=== PATIENT | male | born 1990 | race Caucasian/White ===

== ENCOUNTER 2022-12-26 02:04 | Emergency (ER) | payer BC ==
[2022-12-26] MEDS ORDERED: XYLOCAINE 1% HCL 20 ML MDV IJ ONE (02:05)
--- NOTE | 2022-12-26 02:08 | ERPHSYRPT ---
- History of Present Illness Time Seen by Provider: 12/26/22 02:07 Source: patient Exam Limitations: no limitations Physician History: This is a 32-year-old white male patient who presents with approximately 1-1/2 days of worsening left lower dental pain and swelling of the left jaw. Patient did have some old Augmentin from old infection but it is but he is taken 3 doses of that medication. Patient has no known drug allergies. Patient has a dentist appointment on 12/27/2022. At 130 this morning, patient took 800 mg of ibuprofen orally. Timing/Duration: day(s) (1.5) Severity: moderate Modifying Factors: Improves With: other (Chewing worsens) Associated Symptoms: denies symptoms Allergies/Adverse Reactions: No Known Drug Allergies Allergy (Verified 12/26/22 02:31) Travel Risk - International Travel Have you traveled outside of the country in past 3 weeks: No - Coronavirus Screening Are you exhibiting any of the following symptoms?: No Close contact with a COVID-19 positive Pt in past 14-21 Days: No - Review of Systems Constitutional: No Symptoms Eyes: No Symptoms Ears, Nose, & Throat: Other (Dental pain left lower molars) Respiratory: No Symptoms Cardiac: No Symptoms Abdominal/Gastrointestinal: No Symptoms Genitourinary Symptoms: No Symptoms Musculoskeletal: No Symptoms Skin: No Symptoms Neurological: No Symptoms Psychological: No Symptoms Endocrine: No Symptoms Hematologic/Lymphatic: No Symptoms Immunological/Allergic: No Symptoms All Other Systems: Reviewed and Negative - Past Medical History Pertinent Past Medical History: Yes - Past Surgical History Past Surgical History: Yes - Nursing Vital Signs Nursing Vital Signs: Initial Vital Signs Temperature 98.2 F 12/26/22 02:31 Pulse Rate 76 12/26/22 02:31 Respiratory Rate 18 12/26/22 02:31 Blood Pressure 119/80 12/26/22 02:31 O2 Sat by Pulse Oximetry 96 12/26/22 02:31 Pain Scale Pain Intensity 6 - Physical Exam General Appearance: no apparent distress, alert Eye Exam: PERRL/EOMI, eyes nml inspection Ears, Nose, Throat Exam: other (Molar pain left lower molars with gingival swelling) Neck Exam: normal inspection, non-tender, supple, full range of motion Respiratory Exam: airway intact, No chest tenderness, No respiratory distress Gastrointestinal/Abdomen Exam: No tenderness Rectal Exam: not done Back Exam: normal inspection, normal range of motion, No CVA tenderness, No vertebral tenderness Extremity Exam: normal inspection, normal range of motion, pelvis stable Neurologic Exam: alert, oriented x 3, cooperative, rougher for cement II-XII nml as tested, no rmal mood/affect, nml cerebellar function, nml station & gait, sensation nml Skin Exam: normal color, warm, dry Lymphatic Exam: No adenopathy SpO2 Interpretation: normal O2 Delivery: Room Air - Course Nursing assessment & vital signs reviewed: Yes Ordered Tests: Medication Summary Discontinued Medications Generic Name Dose Route Start Last Admin Trade Name Oniel PRN Reason Stop Dose Admin Ceftriaxone Sodium 1,000 mg 12/26/22 02:53 Ceftriaxone Sodium 1000 Mg Inj Vial IM 12/26/22 02:54 STAT ONE Oxycodone/Acetaminophen 2 tab 12/26/22 02:54 Oxycodone Hcl/Apap 5 Mg/325 Mg Tablet PO 12/26/22 02:55 SENT HOME W/ PATIENT STA - Progress Progress: unchanged Progress Note: 12/26/22 02:58 This patient's medical issue is of low complexity. The level of complexity and the work-up performed is based on review of the patient's past medical history, review of the patient's medication list, review of the patient's drug allergy list, history of present illness and physical findings on examination. Patient does not require any laboratory work-up or radiographic studies. Patient has dental infection and requires follow-up with a dentist. We will provide the patient with Rocephin intramuscularly here and to take home Percocet 5/325 pain pills. Patient drove himself to the emergency department and therefore he can take the medicine at home. He is to continue ibuprofen 600 mg orally 3 times a day with food. Counseled pt/family regarding: diagnosis, need for follow-up Medical Desision Making - Discussion of managment Agreed on:: Treatment plan, need for follow-up - Diagnostic Testing Diagnostic test were ordered, analyzed, and reviewed by me: No - Risk of complications The pt has a mod risk of morbidity or mortality based on: Need for prescription drug management - Departure Departure Disposition: Home Clinical Impression: Dental infection Condition: Stable Critical Care Time: No Additional Instructions: Take ibuprofen 600 mg orally 3 times a day with food for the next 48 hours. Take your antibiotics as prescribed. Keep your appointment with your dentist that you have scheduled on 12/27/2022 for definitive care. Prescriptions: Amoxicillin 500 mg Cap [Amoxil 500 mg] 500 mg PO TID #30 cap
[2022-12-26 02:39] VITALS: O2SAT 96
[2022-12-26] MEDS ORDERED: Rocephin 1000 MG INJ IM ONE (02:53)
[2022-12-26] MEDS ORDERED: PERCOCET TABLET 5/325MG PO STA (02:54)
[2022-12-26] MEDS ORDERED: PERCOCET TABLET 5/325MG ONE (02:57)
[2022-12-26] MEDS ORDERED: Rocephin 1000 MG INJ ONE (02:57)
[2022-12-26 03:08] VITALS: BP 120/80; PULSE 70
== END 2022-12-26 03:14 | disposition home or self-care (01) ==
LOC: ED 02:04
DX: K04.7 Periapical abscess without sinus (principal); Z20.828 Contact with and (suspected) exposure to other viral communicable diseases
CPT/HCPCS: 96372; 99283; J0696; A9270-GY